=== PATIENT | male | born 1960 | race Caucasian/White ===

== ENCOUNTER 2017-01-25 02:42 | Inpatient (IN) | payer SELFPAY ==
[~2017-01-25] VITALS: Ht 177.8 cm; Wt 105.0 kg
[2017-01-25] MEDS ORDERED: PRILOSEC OTC20 MG PO (05:51)
[2017-01-25 06:33] LABS: HEMOGLOBIN 15.3 gm/dl (14.0-17.5); RED BLOOD COUNT 5.12 M/UL (4.20-5.50); WHITE BLOOD COUNT 8.4 K/UL (4.5-11.0)
[2017-01-25 09:45] LABS: BUN/CREATININE RATIO 13 (0-10)
[2017-01-25 23:11] LABS: HEMOGLOBIN 14.2 gm/dl (14.0-17.5); RED BLOOD COUNT 4.74 M/UL (4.20-5.50); WHITE BLOOD COUNT 8.4 K/UL (4.5-11.0)
[2017-01-25 23:29] LABS: BUN/CREATININE RATIO 14 (0-10)
[2017-01-26 06:47] LABS: HEMOGLOBIN 14.4 gm/dl (14.0-17.5); RED BLOOD COUNT 4.87 M/UL (4.20-5.50); WHITE BLOOD COUNT 7.9 K/UL (4.5-11.0)
[2017-01-26 07:04] LABS: BUN/CREATININE RATIO 11 (0-10)
[2017-01-26] MEDS ORDERED: ADULT LOW DOSE81 MG PO (09:45)
[2017-01-26] MEDS ORDERED: CRESTOR5 MG PO (09:46)
[2017-01-26] MEDS ORDERED: LISINOPRIL5 MG PO (09:47)
[2017-01-26] MEDS ORDERED: LOPRESSOR 25 MG25 MG PO (09:48)
[2017-01-26] MEDS ORDERED: BRILINTA90 MG PO (09:50)
== END 2017-01-26 11:53 | disposition home or self-care (01) | DRG 247 ==
LOC: M/S 02:42 → PROG CARE 04:59
PROVIDERS: Physician Assistant; ADMIT Internal Medicine Cardiovascular Disease
PROC: 027034Z Dilation of Coronary Artery, One Artery with Drug-eluting Intraluminal Device, Percutaneous Approach (ICD-10-PCS; principal; 2017-01-25)
PROC: B2111ZZ Fluoroscopy of Multiple Coronary Arteries using Low Osmolar Contrast (ICD-10-PCS; principal; 2017-01-25)
DX: I21.4 Non-ST elevation (NSTEMI) myocardial infarction (principal); I24.9 Acute ischemic heart disease, unspecified; I25.10 Atherosclerotic heart disease of native coronary artery without angina pectoris; K21.9 Gastro-esophageal reflux disease without esophagitis; F17.210 Nicotine dependence, cigarettes, uncomplicated; Z79.899 Other long term (current) drug therapy; Z28.21 Immunization not carried out because of patient refusal; E66.9 Obesity, unspecified; Z68.33 Body mass index [BMI] 33.0-33.9, adult; E78.5 Hyperlipidemia, unspecified
CPT/HCPCS: ECHO; 36415; 78452; 80048; 80053; 80061; 82248; 82550; 82553; 83036; 84484; 85027; 85610; 85730; 93005; 93017; 93306; A9502; C1725; C1769; C1874; C1887; C9600; J0583; J1644; J2250; J2785; J3010; J7030; J7040; Q9963

== ENCOUNTER 2022-05-11 16:33 | Emergency (ER) | payer SELFPAY ==
[~2022-05-11 16:33] MED LIST: ADULT LOW DOSE81 MG PO; BRILINTA90 MG PO; CRESTOR5 MG PO; LISINOPRIL5 MG PO; LOPRESSOR 25 MG25 MG PO; PRILOSEC OTC20 MG PO
[2022-05-11 19:41] LABS: HEMOGLOBIN 13.8 gm/dl (14.0-17.5); RED BLOOD COUNT 4.69 M/UL (4.20-5.50); WHITE BLOOD COUNT 10.8 K/UL (4.5-11.0)
[2022-05-11 20:06] LABS: BUN/CREATININE RATIO 12 (0-10)
== END 2022-05-11 23:10 | disposition home or self-care (01) ==
LOC: ER1 16:33
PROVIDERS: Physician Assistant
DX: M96.830 Postprocedural hemorrhage of a musculoskeletal structure following a musculoskeletal system procedure (principal); I10 Essential (primary) hypertension; Z79.01 Long term (current) use of anticoagulants; F17.200 Nicotine dependence, unspecified, uncomplicated
CPT/HCPCS: 80048; 85025; 85610; 93926; 99284

== ENCOUNTER 2022-05-19 21:08 | Emergency (ER) | payer SELFPAY ==
[2022-05-19 21:39] LABS: RED BLOOD COUNT 4.5 M/UL (4.20-5.50); WHITE BLOOD COUNT 14.7 K/UL (4.5-11.0)
[2022-05-19 22:41] LABS: BUN/CREATININE RATIO 12 (0-10)
== END 2022-05-19 22:40 | disposition home or self-care (01) ==
LOC: ER1 21:08
PROVIDERS: Emergency Medicine
DX: K62.5 Hemorrhage of anus and rectum (principal)
CPT/HCPCS: 80053; 83690; 85025; 99283